=== PATIENT | male | born 1970 | race Caucasian/White ===

== ENCOUNTER 2017-08-03 19:15 | Emergency (ER) | payer OTHER ==
[2017-08-03 19:40] VITALS: BP 140/102
--- NOTE | 2017-08-03 19:47 | UC ---
Throat Pain/Nasal [place] HPI - HPI Summary HPI Summary: Pt presents with a dry cough and redness to the back of his throat. He tells me that he had the flu about 1 month ago and recovered, but still has a lingering dry cough and mild sore throat at times. He has recently been exposed to children that have strep and wants to make sure he does not have it as well. Denies fever, chills, sinus symptoms, SOB, chest pain, abdominal pain. - History of Current Complaint Chief Complaint: UCRespiratory Stated Complaint: SORE THROAT,COUGH Hx Obtained From: Patient Onset/Duration: Gradual Onset Severity: Mild Pain Intensity: 3 Pain Scale Used: 0-10 Numeric Cough: Nonproductive - Allergies/Home Medications Allergies/Adverse Reactions: Allergies Allergy/AdvReac Type Severity Reaction Status Date / Time amoxicillin Allergy Severe Hives Verified 08/03/17 19:40 Home Medications: Home Medications Diuretic* 08/03/17 [History] Dm/Acetaminophen/Doxylamine [Coricidin Hbp Cold-Multi Sympt] PRN 08/03/17 [ History] Hydrochlorothiazide TAB* [Hydrodiuril TAB*] 08/03/17 [History] Levothyroxine TAB* [Synthroid TAB*] 88 mcg PO DAILY 08/03/17 [History Confirmed 08/03/17] Lisinopril TAB* [Prinivil TAB 5 MG*] 08/03/17 [History] PMH/Surg Hx/FS Hx/Imm Hx Previously Healthy: Yes Endocrine History: Thyroid Disease Cardiovascular History: Hypertension - Surgical History Surgical History: Yes Surgery Procedure, Year, and Place: TONSILLECTOMY AGE 3 - Family History Known Family History: Positive: None - Social History Occupation: Employed Full-time Lives: With Family Alcohol Use: Occasionally Substance Use Type: None Smoking Status (MU): Never Smoked Tobacco Review of Systems Constitutional: Negative Skin: Negative Eyes: Negative ENT: Sore Throat Respiratory: Cough Cardiovascular: Negative Gastrointestinal: Negative Musculoskeletal: Negative Neurological: Negative Psychological: Negative All Other Systems Reviewed And Are Negative: Yes Physical Exam - Summary Physical Exam Summary: GENERAL: NAD. WDWN. No pain distress. SKIN: No rashes, sores, ulcers, masses, lesions. HEENT: Head: AT/NC Eyes: Conjunctiva clear without inflammation or discharge. Ears: Hearing grossly normal. TMs intact, no bulging, erythema, or edema. Nose: Nasal mucosa pink and moist. NTTP maxillary and frontal sinus. Throat: Posterior oropharynx mild erythema. No tonsillar enlargement. No exudates. Uvula midline. No hoarse voice or muffled voice. NECK: Supple. Nontender. No lymphadenopathy. CHEST: CTAB. No r/r/w. No accessory muscle use. Breathing comfortably and in no distress. CV: RRR. Without m/r/g. Pulses intact. Brisk cap refill. NEURO: Alert. CN II-XII grossly intact. PSYCH: Age appropriate behavior. Triage Information Reviewed: Yes Vital Signs: Initial Vital Signs Temp 98.1 F 08/03/17 19:35 Pulse 81 08/03/17 19:35 Resp 16 08/03/17 19:35 BP 140/102 08/03/17 19:35 Pulse Ox 100 08/03/17 19:35 Throat Pain/Nasal Course/Dx - Course Course Of Treatment: POC strep negative. Pharyngitis and cough - will try tessalon for him during the day and advise to continue drinking fluids and f/u if symptoms persist/worsen. Repeat BP was 140/90 - currently being treated for HTN and PCP is aware. - Differential Dx/Diagnosis Provider Diagnoses: Pharyngitis. Cough Discharge - Discharge Plan Condition: Stable Disposition: HOME Prescriptions: Benzonatate CAP* [Tessalon 100 MG CAP*] 100 mg PO TID PRN #15 cap PRN Reason: Cough Patient Education Materials: Pharyngitis (ED) Referrals: Travon Kumari MD [Primary Care Provider] - Additional Instructions: If you develop a fever, shortness of breath, chest pain, new or worsening symptoms - please call your PCP or go to the ED. Your blood pressure was high at todays visit. Please see your primary provider within 4 weeks for recheck and re-evaluation.
== END 2017-08-03 20:20 | disposition home or self-care (01) ==
LOC: UCEAST 19:15
DX: J02.9 Acute pharyngitis, unspecified (principal); R05 Cough; E07.9 Disorder of thyroid, unspecified; I10 Essential (primary) hypertension; Z88.1 Allergy status to other antibiotic agents
CPT/HCPCS: 87651; 99212; G0463